=== PATIENT | male | born 1955 | race Caucasian/White ===

== ENCOUNTER 2018-02-10 15:02 | Inpatient (IN) | payer OTHER ==
[2018-02-10] MEDS ORDERED: FAMOTIDINE 20 MG TAB PO PRN (17:34)
[2018-02-10] MEDS ORDERED: BISACODYL 10 MG SUPP PR PRN (17:58)
[2018-02-10] MEDS: IBUPROFEN 200 MG TAB PO SCH (18:47)
[2018-02-10] MEDS: HYDROmorphONE/DILAUDID 2 MG TAB PO PRN (20:23)
[2018-02-10] MEDS: LORazepam 1 MG TAB PO SCH (21:07)
[2018-02-10] MEDS: ATORVASTATIN CALCIUM 20 MG TAB PO SCH (21:34)
[2018-02-10] MEDS: GABAPENTIN 300 MG CAP PO SCH (21:34)
[2018-02-10] MEDS: CYCLOBENZAPRINE 10 MG TAB PO SCH (21:35)
[2018-02-10] MEDS: OXcarbazepine 300 MG TAB PO SCH (21:35)
[2018-02-10] MEDS: QUEtiapine FUMARATE 100 MG TAB PO SCH (21:48)
[2018-02-11] MEDS: IBUPROFEN 200 MG TAB PO SCH ×2 (00:16→06:03)
[2018-02-11] MEDS: HYDROmorphONE/DILAUDID 2 MG TAB PO PRN (00:35)
[2018-02-11 08:14] LABS: PLATELET COUNT 444 10^3/uL (150-400)
[2018-02-11] MEDS ORDERED: Herbals/Supplements -Info Only PO SCH (09:00)
[2018-02-11] MEDS: POLYETHYLENE GLYCOL 3350 17 GM PKT PO SCH (09:18)
[2018-02-11] MEDS: GLUCOSAMINE/CHONDROITIN CAP PO SCH ×2 (09:18→20:59)
[2018-02-11] MEDS: GABAPENTIN 300 MG CAP PO SCH ×3 (09:18→20:58)
[2018-02-11] MEDS: SERTRALINE HCL 100 MG TAB PO SCH (09:19)
[2018-02-11] MEDS: FUROSEMIDE 20 MG TAB PO SCH (09:19)
[2018-02-11] MEDS: CYCLOBENZAPRINE 10 MG TAB PO SCH ×3 (09:19→20:59)
[2018-02-11] MEDS: SENNOSIDES 1 TAB PO PRN (09:19)
[2018-02-11] MEDS: ENOXAPARIN 40 MG/0.4 ML SYR SC SCH (09:19)
[2018-02-11] MEDS ORDERED: PANTOPRAZOLE SODIUM 40 MG TAB PO SCH (09:30)
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
--- NOTE | 2018-02-11 11:02 | PDOREHIP ---
Admission [facility] - Admission - 3 Day Assessment Period Admission Date/Day 1: 02/10/18 Day 2: 02/11/18 Day 3: 02/12/18 - Active Diagnoses Comorbidities and Co-existing Conditions at Admission: 43962. None of the Above - Skin Conditions Unhealed Pressure Ulcer (1 or more/Stage 1 or >)-Admission: 0. No
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
[2018-02-11] MEDS: ACETAMINOPHEN 500 MG TAB PO PRN (14:44)
[2018-02-11] MEDS: ATORVASTATIN CALCIUM 20 MG TAB PO SCH (20:57)
[2018-02-11] MEDS: OXcarbazepine 300 MG TAB PO SCH (20:59)
[2018-02-11] MEDS: LORazepam 1 MG TAB PO SCH (20:59)
[2018-02-11] MEDS ORDERED: morphINE SR 15 MG TAB PO SCH (21:00)
[2018-02-11] MEDS: QUEtiapine FUMARATE 100 MG TAB PO SCH (21:02)
[2018-02-12] MEDS: HYDROmorphONE/DILAUDID 2 MG TAB PO PRN ×3 (00:08→23:32)
[2018-02-12] MEDS: ACETAMINOPHEN 500 MG TAB PO PRN (02:30)
[2018-02-12] MEDS: SERTRALINE HCL 100 MG TAB PO SCH (08:21)
[2018-02-12] MEDS: FUROSEMIDE 20 MG TAB PO SCH (08:21)
[2018-02-12] MEDS: GABAPENTIN 300 MG CAP PO SCH ×3 (08:21→20:52)
[2018-02-12] MEDS: GLUCOSAMINE/CHONDROITIN CAP PO SCH ×2 (08:21→20:52)
[2018-02-12] MEDS: CYCLOBENZAPRINE 10 MG TAB PO SCH ×3 (08:21→20:52)
[2018-02-12] MEDS: POLYETHYLENE GLYCOL 3350 17 GM PKT PO SCH (08:21)
[2018-02-12] MEDS: ENOXAPARIN 40 MG/0.4 ML SYR SC SCH (08:21)
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
[2018-02-12] MEDS: ATORVASTATIN CALCIUM 20 MG TAB PO SCH (20:50)
[2018-02-12] MEDS: morphINE SR 15 MG TAB PO SCH (20:50)
[2018-02-12] MEDS: LORazepam 1 MG TAB PO SCH (20:50)
[2018-02-12] MEDS: OXcarbazepine 300 MG TAB PO SCH (20:51)
[2018-02-12] MEDS: QUEtiapine FUMARATE 100 MG TAB PO SCH (20:52)
[2018-02-13] MEDS: LORazepam 1 MG TAB PO PRN (00:02)
[2018-02-13] MEDS: ACETAMINOPHEN 500 MG TAB PO PRN (00:56)
[2018-02-13] MEDS: HYDROmorphONE/DILAUDID 2 MG TAB PO PRN ×2 (05:27→23:35)
[2018-02-13] MEDS: CYCLOBENZAPRINE 10 MG TAB PO SCH ×3 (08:33→21:15)
[2018-02-13] MEDS: POLYETHYLENE GLYCOL 3350 17 GM PKT PO SCH (08:33)
[2018-02-13] MEDS: FUROSEMIDE 20 MG TAB PO SCH ×2 (08:33→15:36)
[2018-02-13] MEDS: ENOXAPARIN 40 MG/0.4 ML SYR SC SCH (08:33)
[2018-02-13] MEDS: GLUCOSAMINE/CHONDROITIN CAP PO SCH ×2 (08:33→20:13)
[2018-02-13] MEDS: SERTRALINE HCL 100 MG TAB PO SCH (08:33)
[2018-02-13] MEDS: GABAPENTIN 300 MG CAP PO SCH ×3 (08:33→21:15)
[2018-02-13] MEDS: SENNOSIDES 1 TAB PO PRN ×2 (08:38→20:13)
[2018-02-13] MEDS: CEPHALEXIN 500 MG CAP PO SCH ×3 (12:47→23:59)
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
[2018-02-13] MEDS: ATORVASTATIN CALCIUM 20 MG TAB PO SCH (20:13)
[2018-02-13] MEDS: QUEtiapine FUMARATE 100 MG TAB PO SCH (20:13)
[2018-02-13] MEDS: OXcarbazepine 300 MG TAB PO SCH (20:14)
[2018-02-13] MEDS: LORazepam 1 MG TAB PO SCH (20:15)
[2018-02-13] MEDS: morphINE SR 15 MG TAB PO SCH (20:15)
[2018-02-14] MEDS: CEPHALEXIN 500 MG CAP PO SCH ×4 (04:50→22:46)
[2018-02-14] MEDS: HYDROmorphONE/DILAUDID 2 MG TAB PO PRN ×2 (04:50→22:21)
[2018-02-14] MEDS: POLYETHYLENE GLYCOL 3350 17 GM PKT PO SCH (08:39)
[2018-02-14] MEDS: FUROSEMIDE 20 MG TAB PO SCH ×2 (08:40→14:26)
[2018-02-14] MEDS: CYCLOBENZAPRINE 10 MG TAB PO SCH ×3 (08:40→21:21)
[2018-02-14] MEDS: SENNOSIDES 1 TAB PO PRN (08:40)
[2018-02-14] MEDS: GLUCOSAMINE/CHONDROITIN CAP PO SCH ×2 (08:41→21:22)
[2018-02-14] MEDS: GABAPENTIN 300 MG CAP PO SCH ×3 (08:41→21:22)
[2018-02-14] MEDS: SERTRALINE HCL 100 MG TAB PO SCH (08:41)
[2018-02-14] MEDS: ENOXAPARIN 40 MG/0.4 ML SYR SC SCH (08:42)
[2018-02-14] MEDS: morphINE SR 15 MG TAB PO SCH ×2 (12:17→21:22)
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
[2018-02-14] MEDS: BISACODYL 10 MG SUPP PR SCH (18:21)
[2018-02-14] MEDS: OXcarbazepine 300 MG TAB PO SCH (21:21)
[2018-02-14] MEDS: QUEtiapine FUMARATE 100 MG TAB PO SCH (21:22)
[2018-02-14] MEDS: SENNOSIDES 1 TAB PO SCH (21:22)
[2018-02-14] MEDS: ATORVASTATIN CALCIUM 20 MG TAB PO SCH (21:22)
[2018-02-14] MEDS: LORazepam 1 MG TAB PO SCH (21:22)
[2018-02-15] MEDS: LORazepam 1 MG TAB PO PRN
[2018-02-15] MEDS: HYDROmorphONE/DILAUDID 2 MG TAB PO PRN ×2 (03:38→20:34)
[2018-02-15] MEDS: ACETAMINOPHEN 500 MG TAB PO PRN (06:43)
[2018-02-15] MEDS: CEPHALEXIN 500 MG CAP PO SCH ×4 (06:43→22:04)
[2018-02-15] MEDS: POLYETHYLENE GLYCOL 3350 17 GM PKT PO SCH (08:49)
[2018-02-15] MEDS: ENOXAPARIN 40 MG/0.4 ML SYR SC SCH (08:49)
[2018-02-15] MEDS: GABAPENTIN 300 MG CAP PO SCH ×3 (08:49→20:33)
[2018-02-15] MEDS: FUROSEMIDE 20 MG TAB PO SCH ×2 (08:49→16:28)
[2018-02-15] MEDS: SENNOSIDES 1 TAB PO SCH ×2 (08:49→20:32)
[2018-02-15] MEDS: GLUCOSAMINE/CHONDROITIN CAP PO SCH ×2 (08:50→20:33)
[2018-02-15] MEDS: CYCLOBENZAPRINE 10 MG TAB PO SCH ×3 (08:50→20:33)
[2018-02-15] MEDS: CHOLECALCIFEROL VIT D3 2,000 UNITS TAB/CAP PO SCH (08:50)
[2018-02-15] MEDS: morphINE SR 15 MG TAB PO SCH ×2 (08:50→20:33)
[2018-02-15] MEDS: SERTRALINE HCL 100 MG TAB PO SCH (08:50)
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
[2018-02-15] MEDS: BISACODYL 10 MG SUPP PR SCH (18:19)
[2018-02-15] MEDS: QUEtiapine FUMARATE 100 MG TAB PO SCH (20:32)
[2018-02-15] MEDS: LORazepam 1 MG TAB PO SCH (20:33)
[2018-02-15] MEDS: ATORVASTATIN CALCIUM 20 MG TAB PO SCH (20:33)
[2018-02-15] MEDS: OXcarbazepine 300 MG TAB PO SCH (20:33)
[2018-02-16] MEDS: HYDROmorphONE/DILAUDID 2 MG TAB PO PRN ×3 (00:48→22:17)
[2018-02-16] MEDS: LORazepam 1 MG TAB PO PRN (00:49)
[2018-02-16] MEDS: ACETAMINOPHEN 500 MG TAB PO PRN ×2 (03:52→13:52)
[2018-02-16] MEDS: CEPHALEXIN 500 MG CAP PO SCH ×2 (05:51→12:15)
[2018-02-16] MEDS: SERTRALINE HCL 100 MG TAB PO SCH (08:21)
[2018-02-16] MEDS: CHOLECALCIFEROL VIT D3 2,000 UNITS TAB/CAP PO SCH (08:22)
[2018-02-16] MEDS: FUROSEMIDE 20 MG TAB PO SCH ×2 (08:22→15:32)
[2018-02-16] MEDS: GLUCOSAMINE/CHONDROITIN CAP PO SCH ×2 (08:22→20:43)
[2018-02-16] MEDS: CYCLOBENZAPRINE 10 MG TAB PO SCH ×3 (08:22→20:43)
[2018-02-16] MEDS: ENOXAPARIN 40 MG/0.4 ML SYR SC SCH (08:22)
[2018-02-16] MEDS: GABAPENTIN 300 MG CAP PO SCH ×3 (08:22→20:43)
[2018-02-16] MEDS: morphINE SR 15 MG TAB PO SCH ×2 (08:22→20:42)
[2018-02-16] MEDS: SENNOSIDES 1 TAB PO SCH ×2 (08:23→20:43)
[2018-02-16] MEDS: POLYETHYLENE GLYCOL 3350 17 GM PKT PO SCH (08:23)
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
[2018-02-16] MEDS: SULFAMETHOX/TMP 800/160 MG 1 TAB PO SCH ×2 (13:51→20:43)
[2018-02-16] MEDS: BISACODYL 10 MG SUPP PR SCH (18:08)
[2018-02-16 18:53] LABS: PLATELET COUNT 431 10^3/uL (150-400)
[2018-02-16] MEDS: LORazepam 1 MG TAB PO SCH (20:42)
[2018-02-16] MEDS: QUEtiapine FUMARATE 100 MG TAB PO SCH (20:42)
[2018-02-16] MEDS: OXcarbazepine 300 MG TAB PO SCH (20:43)
[2018-02-16] MEDS: ATORVASTATIN CALCIUM 20 MG TAB PO SCH (20:43)
[2018-02-17] MEDS: LORazepam 1 MG TAB PO PRN (00:38)
[2018-02-17] MEDS: ACETAMINOPHEN 500 MG TAB PO PRN ×2 (00:53→23:11)
[2018-02-17] MEDS: HYDROmorphONE/DILAUDID 2 MG TAB PO PRN ×2 (02:35→20:25)
[2018-02-17] MEDS: POLYETHYLENE GLYCOL 3350 17 GM PKT PO SCH (09:49)
[2018-02-17] MEDS: ENOXAPARIN 40 MG/0.4 ML SYR SC SCH (09:49)
[2018-02-17] MEDS: CYCLOBENZAPRINE 10 MG TAB PO SCH (09:49)
[2018-02-17] MEDS: SULFAMETHOX/TMP 800/160 MG 1 TAB PO SCH ×2 (09:49→20:22)
[2018-02-17] MEDS: CHOLECALCIFEROL VIT D3 2,000 UNITS TAB/CAP PO SCH (09:49)
[2018-02-17] MEDS: GLUCOSAMINE/CHONDROITIN CAP PO SCH ×2 (09:49→20:20)
[2018-02-17] MEDS: morphINE SR 15 MG TAB PO SCH ×2 (09:49→22:17)
[2018-02-17] MEDS: SENNOSIDES 1 TAB PO SCH ×2 (09:49→20:22)
[2018-02-17] MEDS: GABAPENTIN 300 MG CAP PO SCH ×3 (09:49→20:29)
[2018-02-17] MEDS: FUROSEMIDE 20 MG TAB PO SCH ×2 (09:49→16:05)
[2018-02-17] MEDS: SERTRALINE HCL 100 MG TAB PO SCH (09:49)
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
[2018-02-17] MEDS: BISACODYL 10 MG SUPP PR SCH (18:15)
[2018-02-17] MEDS: ATORVASTATIN CALCIUM 20 MG TAB PO SCH (20:20)
[2018-02-17] MEDS: LORazepam 1 MG TAB PO SCH ×2 (20:21→21:05)
[2018-02-17] MEDS: OXcarbazepine 300 MG TAB PO SCH (20:21)
[2018-02-17] MEDS: QUEtiapine FUMARATE 100 MG TAB PO SCH (20:22)
[2018-02-18] MEDS: LORazepam 1 MG TAB PO PRN ×2 (00:03→23:13)
[2018-02-18] MEDS: HYDROmorphONE/DILAUDID 2 MG TAB PO PRN ×3 (00:49→20:57)
[2018-02-18] MEDS: SENNOSIDES 1 TAB PO SCH ×2 (08:25→20:57)
[2018-02-18] MEDS: FUROSEMIDE 20 MG TAB PO SCH (08:25)
[2018-02-18] MEDS: POLYETHYLENE GLYCOL 3350 17 GM PKT PO SCH (08:25)
[2018-02-18] MEDS: morphINE SR 15 MG TAB PO SCH ×2 (08:25→20:57)
[2018-02-18] MEDS: SERTRALINE HCL 100 MG TAB PO SCH (08:25)
[2018-02-18] MEDS: CHOLECALCIFEROL VIT D3 2,000 UNITS TAB/CAP PO SCH (08:25)
[2018-02-18] MEDS: SULFAMETHOX/TMP 800/160 MG 1 TAB PO SCH ×2 (08:25→20:57)
[2018-02-18] MEDS: GLUCOSAMINE/CHONDROITIN CAP PO SCH ×2 (08:25→20:57)
[2018-02-18] MEDS: GABAPENTIN 300 MG CAP PO SCH ×3 (08:25→20:56)
[2018-02-18] MEDS: ENOXAPARIN 40 MG/0.4 ML SYR SC SCH (08:26)
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
[2018-02-18] MEDS: BISACODYL 10 MG SUPP PR SCH (16:22)
[2018-02-18] MEDS: QUEtiapine FUMARATE 100 MG TAB PO SCH (20:56)
[2018-02-18] MEDS: OXcarbazepine 300 MG TAB PO SCH (20:57)
[2018-02-18] MEDS: LORazepam 1 MG TAB PO SCH (20:57)
[2018-02-18] MEDS: ATORVASTATIN CALCIUM 20 MG TAB PO SCH (20:57)
[2018-02-18] MEDS: ACETAMINOPHEN 500 MG TAB PO PRN (22:25)
[2018-02-18] MEDS: CYCLOBENZAPRINE 10 MG TAB PO PRN (22:25)
[2018-02-19] MEDS: HYDROmorphONE/DILAUDID 2 MG TAB PO PRN ×4 (00:49→20:20)
[2018-02-19] MEDS: GABAPENTIN 300 MG CAP PO SCH ×3 (08:44→20:18)
[2018-02-19] MEDS: FUROSEMIDE 20 MG TAB PO SCH (08:45)
[2018-02-19] MEDS: GLUCOSAMINE/CHONDROITIN CAP PO SCH ×2 (08:45→20:19)
[2018-02-19] MEDS: SERTRALINE HCL 100 MG TAB PO SCH (08:45)
[2018-02-19] MEDS: CHOLECALCIFEROL VIT D3 2,000 UNITS TAB/CAP PO SCH (08:45)
[2018-02-19] MEDS: SULFAMETHOX/TMP 800/160 MG 1 TAB PO SCH ×2 (08:45→20:19)
[2018-02-19] MEDS: morphINE SR 15 MG TAB PO SCH ×2 (08:46→20:20)
[2018-02-19] MEDS: POLYETHYLENE GLYCOL 3350 17 GM PKT PO SCH (08:46)
[2018-02-19] MEDS: ENOXAPARIN 40 MG/0.4 ML SYR SC SCH (09:29)
[2018-02-19] MEDS: SENNOSIDES 1 TAB PO SCH ×2 (09:31→20:20)
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
[2018-02-19] MEDS: CYCLOBENZAPRINE 10 MG TAB PO PRN ×2 (16:11→20:18)
[2018-02-19] MEDS: BISACODYL 10 MG SUPP PR SCH (16:16)
[2018-02-19] MEDS: LORazepam 1 MG TAB PO SCH (20:18)
[2018-02-19] MEDS: QUEtiapine FUMARATE 100 MG TAB PO SCH (20:19)
[2018-02-19] MEDS: ATORVASTATIN CALCIUM 20 MG TAB PO SCH (20:19)
[2018-02-19] MEDS: OXcarbazepine 300 MG TAB PO SCH (20:19)
[2018-02-19] MEDS: LORazepam 1 MG TAB PO PRN (23:19)
[2018-02-19] MEDS ORDERED: LIDOCAINE 4%/MENTHOL 1% PATCH TD PRN (23:25)
[2018-02-19] MEDS: ACETAMINOPHEN 500 MG TAB PO PRN (23:33)
[2018-02-20] MEDS: HYDROmorphONE/DILAUDID 2 MG TAB PO PRN ×2 (00:15→03:57)
[2018-02-20] MEDS: morphINE SR 15 MG TAB PO SCH ×2 (06:41→20:07)
[2018-02-20] MEDS: POLYETHYLENE GLYCOL 3350 17 GM PKT PO SCH (08:07)
[2018-02-20] MEDS: SULFAMETHOX/TMP 800/160 MG 1 TAB PO SCH ×2 (08:08→20:07)
[2018-02-20] MEDS: CHOLECALCIFEROL VIT D3 2,000 UNITS TAB/CAP PO SCH (08:08)
[2018-02-20] MEDS: GABAPENTIN 300 MG CAP PO SCH ×3 (08:08→20:55)
[2018-02-20] MEDS: GLUCOSAMINE/CHONDROITIN CAP PO SCH ×2 (08:09→20:05)
[2018-02-20] MEDS: FUROSEMIDE 20 MG TAB PO SCH (08:09)
[2018-02-20] MEDS: SERTRALINE HCL 100 MG TAB PO SCH (08:09)
[2018-02-20] MEDS: SENNOSIDES 1 TAB PO SCH ×2 (08:10→20:06)
[2018-02-20] MEDS: ENOXAPARIN 40 MG/0.4 ML SYR SC SCH (08:11)
[2018-02-20] MEDS: PATCH REMOVAL 1 EA PATCH TD SCH (08:11)
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
[2018-02-20] MEDS: BISACODYL 10 MG SUPP PR SCH (17:18)
[2018-02-20] MEDS ORDERED: FUROSEMIDE 20 MG TAB PO ONE (18:00)
[2018-02-20] MEDS: QUEtiapine FUMARATE 100 MG TAB PO SCH (20:06)
[2018-02-20] MEDS: OXcarbazepine 300 MG TAB PO SCH (20:07)
[2018-02-20] MEDS: ATORVASTATIN CALCIUM 20 MG TAB PO SCH (20:08)
[2018-02-20] MEDS: LORazepam 1 MG TAB PO SCH (20:25)
[2018-02-20] MEDS: CYCLOBENZAPRINE 10 MG TAB PO PRN (20:55)
[2018-02-20] MEDS: ACETAMINOPHEN 500 MG TAB PO PRN (20:55)
[2018-02-21] MEDS: LORazepam 1 MG TAB PO PRN ×2 (00:53→23:40)
[2018-02-21] MEDS: ACETAMINOPHEN 500 MG TAB PO PRN (04:28)
[2018-02-21] MEDS ORDERED: HYDROmorphONE/DILAUDID 2 MG TAB PO PRN (05:16)
[2018-02-21] MEDS: HYDROmorphONE/DILAUDID 2 MG TAB PO PRN ×2 (05:22→23:39)
[2018-02-21] MEDS: ENOXAPARIN 40 MG/0.4 ML SYR SC SCH (08:00)
[2018-02-21] MEDS: POLYETHYLENE GLYCOL 3350 17 GM PKT PO SCH (08:24)
[2018-02-21] MEDS: CHOLECALCIFEROL VIT D3 2,000 UNITS TAB/CAP PO SCH (08:26)
[2018-02-21] MEDS: GABAPENTIN 300 MG CAP PO SCH ×3 (08:26→20:42)
[2018-02-21] MEDS: FUROSEMIDE 20 MG TAB PO SCH (08:26)
[2018-02-21] MEDS: morphINE SR 15 MG TAB PO SCH ×2 (08:27→20:41)
[2018-02-21] MEDS: SENNOSIDES 1 TAB PO SCH ×2 (08:27→20:40)
[2018-02-21] MEDS: GLUCOSAMINE/CHONDROITIN CAP PO SCH ×2 (08:27→20:41)
[2018-02-21] MEDS: SULFAMETHOX/TMP 800/160 MG 1 TAB PO SCH ×2 (08:28→20:40)
[2018-02-21] MEDS: SERTRALINE HCL 100 MG TAB PO SCH (08:28)
[2018-02-21] MEDS: PATCH REMOVAL 1 EA PATCH TD SCH (08:29)
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
[2018-02-21 12:44] LABS: PLATELET COUNT 378 10^3/uL (150-400)
[2018-02-21] MEDS ORDERED: IOPAMIDOL (ISOVUE-300) 100 ML BTL ONE (13:31)
[2018-02-21] MEDS: BISACODYL 10 MG SUPP PR SCH (17:35)
[2018-02-21] MEDS: CEPHALEXIN 500 MG CAP PO SCH ×2 (17:36→23:39)
[2018-02-21] MEDS: OXcarbazepine 300 MG TAB PO SCH (20:38)
[2018-02-21] MEDS: QUEtiapine FUMARATE 100 MG TAB PO SCH (20:38)
[2018-02-21] MEDS: ATORVASTATIN CALCIUM 20 MG TAB PO SCH (20:40)
[2018-02-21] MEDS: LORazepam 1 MG TAB PO SCH (20:41)
[2018-02-22] MEDS: ACETAMINOPHEN 500 MG TAB PO PRN (02:38)
[2018-02-22] MEDS: HYDROmorphONE/DILAUDID 2 MG TAB PO PRN ×2 (04:41→22:53)
[2018-02-22] MEDS: CEPHALEXIN 500 MG CAP PO SCH ×4 (06:19→23:00)
[2018-02-22] MEDS: GABAPENTIN 300 MG CAP PO SCH ×3 (08:50→20:57)
[2018-02-22] MEDS: SERTRALINE HCL 100 MG TAB PO SCH (08:50)
[2018-02-22] MEDS: ENOXAPARIN 40 MG/0.4 ML SYR SC SCH (08:50)
[2018-02-22] MEDS: morphINE SR 15 MG TAB PO SCH ×2 (08:50→20:47)
[2018-02-22] MEDS: POLYETHYLENE GLYCOL 3350 17 GM PKT PO SCH (08:50)
[2018-02-22] MEDS: CHOLECALCIFEROL VIT D3 2,000 UNITS TAB/CAP PO SCH (08:51)
[2018-02-22] MEDS: FUROSEMIDE 20 MG TAB PO SCH (08:51)
[2018-02-22] MEDS: GLUCOSAMINE/CHONDROITIN CAP PO SCH ×2 (08:51→20:47)
[2018-02-22] MEDS: SULFAMETHOX/TMP 800/160 MG 1 TAB PO SCH ×2 (08:51→20:47)
[2018-02-22] MEDS: SENNOSIDES 1 TAB PO SCH ×2 (08:51→20:46)
[2018-02-22] MEDS: PATCH REMOVAL 1 EA PATCH TD SCH (08:59)
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
[2018-02-22] MEDS: BISACODYL 10 MG SUPP PR SCH (17:59)
[2018-02-22] MEDS: OXcarbazepine 300 MG TAB PO SCH (20:45)
[2018-02-22] MEDS: QUEtiapine FUMARATE 100 MG TAB PO SCH (20:46)
[2018-02-22] MEDS: ATORVASTATIN CALCIUM 20 MG TAB PO SCH (20:47)
[2018-02-22] MEDS: LORazepam 1 MG TAB PO SCH (20:47)
[2018-02-23] MEDS: ACETAMINOPHEN 500 MG TAB PO PRN (02:21)
[2018-02-23] MEDS: HYDROmorphONE/DILAUDID 2 MG TAB PO PRN ×2 (03:29→23:45)
[2018-02-23] MEDS: CEPHALEXIN 500 MG CAP PO SCH ×4 (05:43→23:45)
[2018-02-23] MEDS: SENNOSIDES 1 TAB PO SCH ×2 (08:35→20:32)
[2018-02-23] MEDS: SERTRALINE HCL 100 MG TAB PO SCH (08:35)
[2018-02-23] MEDS: POLYETHYLENE GLYCOL 3350 17 GM PKT PO SCH (08:35)
[2018-02-23] MEDS: GABAPENTIN 300 MG CAP PO SCH ×3 (08:35→20:33)
[2018-02-23] MEDS: ENOXAPARIN 40 MG/0.4 ML SYR SC SCH (08:35)
[2018-02-23] MEDS: GLUCOSAMINE/CHONDROITIN CAP PO SCH ×2 (08:35→20:34)
[2018-02-23] MEDS: SULFAMETHOX/TMP 800/160 MG 1 TAB PO SCH ×2 (08:35→20:33)
[2018-02-23] MEDS: morphINE SR 15 MG TAB PO SCH ×2 (08:35→20:33)
[2018-02-23] MEDS: FUROSEMIDE 20 MG TAB PO SCH (08:43)
[2018-02-23] MEDS: CHOLECALCIFEROL VIT D3 2,000 UNITS TAB/CAP PO SCH (08:43)
[2018-02-23] MEDS: PATCH REMOVAL 1 EA PATCH TD SCH (09:52)
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
[2018-02-23] MEDS: BISACODYL 10 MG SUPP PR SCH (17:06)
[2018-02-23] MEDS: OXcarbazepine 300 MG TAB PO SCH (20:32)
[2018-02-23] MEDS: LORazepam 1 MG TAB PO SCH (20:33)
[2018-02-23] MEDS: QUEtiapine FUMARATE 100 MG TAB PO SCH (20:33)
[2018-02-23] MEDS: ATORVASTATIN CALCIUM 20 MG TAB PO SCH (20:33)
[2018-02-24] MEDS: ACETAMINOPHEN 500 MG TAB PO PRN (02:04)
[2018-02-24] MEDS: LORazepam 1 MG TAB PO PRN (02:04)
[2018-02-24] MEDS: HYDROmorphONE/DILAUDID 2 MG TAB PO PRN ×2 (03:45→22:24)
[2018-02-24] MEDS: CEPHALEXIN 500 MG CAP PO SCH (06:33)
[2018-02-24] MEDS: morphINE SR 15 MG TAB PO SCH (08:09)
[2018-02-24] MEDS: SENNOSIDES 1 TAB PO SCH ×2 (08:09→20:14)
[2018-02-24] MEDS: GLUCOSAMINE/CHONDROITIN CAP PO SCH ×2 (08:09→20:13)
[2018-02-24] MEDS: GABAPENTIN 300 MG CAP PO SCH ×3 (08:09→20:14)
[2018-02-24] MEDS: POLYETHYLENE GLYCOL 3350 17 GM PKT PO SCH (08:09)
[2018-02-24] MEDS: CHOLECALCIFEROL VIT D3 2,000 UNITS TAB/CAP PO SCH (08:09)
[2018-02-24] MEDS: ENOXAPARIN 40 MG/0.4 ML SYR SC SCH (08:09)
[2018-02-24] MEDS: SERTRALINE HCL 100 MG TAB PO SCH (08:09)
[2018-02-24] MEDS: FUROSEMIDE 20 MG TAB PO SCH (08:09)
[2018-02-24] MEDS: SULFAMETHOX/TMP 800/160 MG 1 TAB PO SCH (08:09)
[2018-02-24] MEDS: PATCH REMOVAL 1 EA PATCH TD SCH (08:17)
[2018-02-24] MEDS ORDERED: BISACODYL 10 MG SUPP PR PRN (11:58)
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
--- NOTE | 2018-02-24 13:11 | PDOREHIP ---
Admission [facility] - Admission - 3 Day Assessment Period Admission Date/Day 1: 02/10/18 Day 2: 02/11/18 Day 3: 02/12/18 Discharge [facility] - Discharge - 3 Day Assessment Period 2 Days Prior to Anticipated Discharge Date: 02/23/18 1 Day Prior to Anticipated Discharge Date: 02/24/18 Anticipated Discharge Date: 02/25/18 - Discharge Skin Conditions Unhealed Pressure Ulcer (1 or more/Stage 1 or >)-Discharge: 0. No
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
[2018-02-24] MEDS: OXcarbazepine 300 MG TAB PO SCH (20:13)
[2018-02-24] MEDS: LORazepam 1 MG TAB PO SCH (20:13)
[2018-02-24] MEDS: QUEtiapine FUMARATE 100 MG TAB PO SCH (20:14)
[2018-02-24] MEDS: ATORVASTATIN CALCIUM 20 MG TAB PO SCH (20:14)
[2018-02-25] MEDS: LORazepam 1 MG TAB PO PRN (02:04)
[2018-02-25] MEDS: ACETAMINOPHEN 500 MG TAB PO PRN (02:04)
[2018-02-25] MEDS: HYDROmorphONE/DILAUDID 2 MG TAB PO PRN (03:04)
[2018-02-25 08:09] VITALS: BP 118/78
[2018-02-25] MEDS: CHOLECALCIFEROL VIT D3 2,000 UNITS TAB/CAP PO SCH (08:23)
[2018-02-25] MEDS: GABAPENTIN 300 MG CAP PO SCH ×2 (08:24→15:26)
[2018-02-25] MEDS: POLYETHYLENE GLYCOL 3350 17 GM PKT PO SCH (08:24)
[2018-02-25] MEDS: SERTRALINE HCL 100 MG TAB PO SCH (08:24)
[2018-02-25] MEDS: ENOXAPARIN 40 MG/0.4 ML SYR SC SCH (08:24)
[2018-02-25] MEDS: GLUCOSAMINE/CHONDROITIN CAP PO SCH (08:24)
[2018-02-25] MEDS: SENNOSIDES 1 TAB PO SCH (08:24)
[2018-02-25] MEDS ORDERED: CLOPIDOGREL BISULFATE 75 MG TAB PO SCH (09:00)
--- NOTE | 2018-02-25 09:07 | PDIAF ---
- Diagnosis Diagnosis: Postoperative cellulitis Code Status: Full Code - Medication Management Discharge Medications: Medications to Continue on Transfer Glucosa Phipps 2Kcl/Chondroitin Phipps [Glucosamine Chondroitin Caplet] 1 each PO BID [Last Taken Unknown] Acetaminophen [Tylenol ES 500 mg (*)] 1,000 mg PO Q8HRS PRN tab 02/24/18 [Last Taken Unknown] Atorvastatin Calcium [Lipitor 20 mg (*)] 20 mg PO HS #30 tab 02/24/18 [Last Taken Unknown] Cholecalciferol Vit D3 [Vitamin D3 2000 units tab (OTC)] 2,000 units PO DAILY each 02/24/18 [Last Taken Unknown] Clopidogrel Bisulfate [Plavix (*)] 75 mg PO DAILY #30 tab 02/24/18 [Last Taken Unknown] Gabapentin 600 mg PO TID #90 tablet 02/24/18 [Last Taken Unknown] HYDROmorphone HCL [Dilaudid 2 mg (*)] 2 - 4 mg PO Q4HRS PRN #30 tab 02/24/18 [ Last Taken Unknown] LORazepam [Ativan (*)] 1 - 2 mg PO HS PRN #30 tab 02/24/18 [Last Taken Unknown] LORazepam [Ativan (*)] 3 mg PO HS #30 tab 02/24/18 [Last Taken Unknown] OXcarbazepine [Trileptal 300mg (*)] 450 mg PO HS #45 tab 02/24/18 [Last Taken Unknown] Polyethylene Glycol 3350 [Miralax 17 gm (*)] 17 gm PO DAILY pkt 02/24/18 [Last Taken Unknown] QUEtiapine FUMARATE [Seroquel 100 mg (*)] 200 mg PO HS #60 tab 02/24/18 [Last Taken Unknown] Sennosides [Senokot] 1 tab PO BID tab 02/24/18 [Last Taken Unknown] Sertraline HCl [Zoloft 100mg (*)] 200 mg PO DAILY #60 tab 02/24/18 [Last Taken Unknown] cefTRIAXone [Rocephin] 2 gm IV DAILY #7 vial 02/24/18 [Last Taken Unknown] Half-Way Antibiotics: Ceftriaxone 2 g IV q 24 hours Half-Way Antibiotic Stop Date: 02/28/18 Discharge Medications: Refer to the Discharge Home Medication list for PRN reason. PICC Care - Routine: N/A (peripheral IV) - Orders Diet Texture: Regular Texture Diet, Thin Liquids, Meds Whole w/Liquids - Follow Up Care Current Providers and Referrals: Evelio Denis MD [Primary Care Provider] - Sam Lin MD [Medical Doctor] - Gisel Ariza MD [Medical Doctor] - Bartolo Waterman MD [Medical Doctor] - 03/01/18 1:30 pm
--- NOTE | 2018-02-25 09:53 | PDIAF ---
- Diagnosis Code Status: Full Code - Medication Management Discharge Medications: Medications to Continue on Transfer Glucosa Phipps 2Kcl/Chondroitin Phipps [Glucosamine Chondroitin Caplet] 1 each PO BID [Last Taken Unknown] Acetaminophen [Tylenol ES 500 mg (*)] 1,000 mg PO Q8HRS PRN tab 02/24/18 [Last Taken Unknown] Atorvastatin Calcium [Lipitor 20 mg (*)] 20 mg PO HS #30 tab 02/24/18 [Last Taken Unknown] Cholecalciferol Vit D3 [Vitamin D3 2000 units tab (OTC)] 2,000 units PO DAILY each 02/24/18 [Last Taken Unknown] Clopidogrel Bisulfate [Plavix (*)] 75 mg PO DAILY #30 tab 02/24/18 [Last Taken Unknown] Gabapentin 600 mg PO TID #90 tablet 02/24/18 [Last Taken Unknown] HYDROmorphone HCL [Dilaudid 2 mg (*)] 2 - 4 mg PO Q4HRS PRN #30 tab 02/24/18 [ Last Taken Unknown] LORazepam [Ativan (*)] 1 - 2 mg PO HS PRN #30 tab 02/24/18 [Last Taken Unknown] LORazepam [Ativan (*)] 3 mg PO HS #30 tab 02/24/18 [Last Taken Unknown] OXcarbazepine [Trileptal 300mg (*)] 450 mg PO HS #45 tab 02/24/18 [Last Taken Unknown] Polyethylene Glycol 3350 [Miralax 17 gm (*)] 17 gm PO DAILY pkt 02/24/18 [Last Taken Unknown] QUEtiapine FUMARATE [Seroquel 100 mg (*)] 200 mg PO HS #60 tab 02/24/18 [Last Taken Unknown] Sennosides [Senokot] 1 tab PO BID tab 02/24/18 [Last Taken Unknown] Sertraline HCl [Zoloft 100mg (*)] 200 mg PO DAILY #60 tab 02/24/18 [Last Taken Unknown] cefTRIAXone [Rocephin] 2 gm IV DAILY #7 vial 02/24/18 [Last Taken Unknown] Discharge Medications: Refer to the Discharge Home Medication list for PRN reason. - Orders Diet Texture: Regular Texture Diet, Thin Liquids, Meds Whole w/Liquids - Follow Up Care Current Providers and Referrals: Evelio Denis MD [Primary Care Provider] - Sam Lin MD [Medical Doctor] - Gisel Ariza MD [Medical Doctor] -
--- NOTE | 2018-02-25 10:00 | PCMIDPN ---
Assessment/Plan: Assessment/Plan: * Postoperative wound erythema: Appears improved with ceftriaxone suggesting infectious etiology rather than hematoma. Will plan 5 days of ceftriaxone with repeat assessment in the office next week. Will continue this via peripheral IV. If fails to resolve, then would favor observation off antibiotics. Involvement of hardware consideration although I think this is of low likelihood based on current clinical findings. Side effects of ceftriaxone have been reviewed with patient. Clinical care coordinated with Dr. Starks and case management. Subjective: Patient feels like redness over lower abdominal wall has decreased. No significant tenderness. Objective: Vital Signs Temp Pulse Resp BP Pulse Ox 36.7 C 66 18 118/78 94 02/25/18 08:00 02/25/18 08:00 02/25/18 08:00 02/25/18 08:00 02/25/18 08:00 Laboratory Results 02/21/18 11:45 02/20/18 06:35 02/24/18 02/25/18 02/26/18 05:59 05:59 05:59 Intake Total 1310 1400 480 Output Total 1950 1251 600 Balance -640 149 -120 ESR 37 MM/HR (0-20) H 02/16/18 16:50 C-Reactive Protein 57.0 mg/L (<10.0) H 02/16/18 16:50 Ceftriaxone # 2 - Physical Exam General Appearance: alert, no apparent distress EENT: No scleral icterus Abdomen: non-tender, other (Incision line with decreased erythema and edema; no drainage; nontender; erythema remains blanching in quality), No distended Lymphatic: other (No pain in right inguinal region) ICD10 Worksheet Patient Problems: Problems Problem Status Onset Blood loss anemia Acute Concussion Acute Factor V Leiden carrier Acute Multiple fractures of ribs of right side Acute Pelvic fracture Acute Pneumothorax, right Acute Scapular fracture Acute
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
== END 2018-02-25 16:36 | disposition home health service (06) | DRG 945 ==
LOC: BREH 17:14
PROVIDERS: ADMIT Internal Medicine; ATTEND Internal Medicine
DX: S06.0X0D Concussion without loss of consciousness, subsequent encounter (principal); S22.41XD Multiple fractures of ribs, right side, subsequent encounter for fracture with routine healing; S42.001D Fracture of unspecified part of right clavicle, subsequent encounter for fracture with routine healing; S42.101D Fracture of unspecified part of scapula, right shoulder, subsequent encounter for fracture with routine healing; S32.401D Unspecified fracture of right acetabulum, subsequent encounter for fracture with routine healing; S32.601D Unspecified fracture of right ischium, subsequent encounter for fracture with routine healing; S32.591D Other specified fracture of right pubis, subsequent encounter for fracture with routine healing; V18.0XXD Pedal cycle driver injured in noncollision transport accident in nontraffic accident, subsequent encounter; F41.8 Other specified anxiety disorders; R13.10 Dysphagia, unspecified; E87.1 Hypo-osmolality and hyponatremia; R09.02 Hypoxemia; D64.9 Anemia, unspecified; R60.0 Localized edema; E78.5 Hyperlipidemia, unspecified; D68.2 Hereditary deficiency of other clotting factors; L03.818 Cellulitis of other sites
CPT/HCPCS: 92507-GN; 92523-GN; 92610-GN; 97110-GO; 97110-GP; 97162-GP; 97166-GO; 97530-GO; 97530-GP; 97535-GO; 97542-GP; G0515-GO; J0696; J1650; Q9967

== ENCOUNTER → 2018-03-10 | Outpatient (CLI) | payer OTHER | LOC: FIMAGING 10:47 | PROVIDERS: ATTEND Surgery | DX: M79.642 Pain in left hand (principal) ==